=== PATIENT | female | born 1990 ===

== ENCOUNTER 2017-11-15 18:09 | Emergency (ER) | payer OTHER ==
--- NOTE | 2017-11-15 19:20 | ED PDOC ---
HPI: Head Injury Time Seen by Provider: 11/15/17 18:09 Chief Complaint (Nursing): Trauma Chief Complaint (Provider): Trauma History Per: Patient History/Exam Limitations: no limitations Onset/Duration Of Symptoms: Mins (prior to arrival) Additional Complaint(s): 27 year old female who presents to the emergency department with a complaint of right-sided head and shoulder injury exasperated with movement after she was struck by a falling ladder upon opening a door prior to arrival. Denied any loss of consciousness, headache, dizziness, nausea, vomiting, numbness or weakness. PMD: none provided Past Medical History Reviewed: Historical Data, Nursing Documentation, Vital Signs - Medical History PMH: No Chronic Diseases - Surgical History Surgical History: No Surg Hx - Family History Family History: States: Unknown Family Hx - Social History Current smoker - smoking cessation education provided: No Alcohol: None Drugs: Denies - Home Medications Home Medications: Ambulatory Orders Medication Instructions Recorded Ibuprofen [Motrin Tab] 1 tab PO Q6 PRN #20 tab 11/15/17 - Allergies Allergies/Adverse Reactions: Allergies Allergy/AdvReac Type Severity Reaction Status Date / Time No Known Allergies Allergy Verified 11/15/17 18:19 Review of Systems ROS Statement: Except As Marked, All Systems Reviewed And Found Negative Gastrointestinal: Negative for: Nausea, Vomiting Musculoskeletal: Positive for: Shoulder Pain (right-sided) Neurological: Positive for: Other (right-sided head injury). Negative for: Weakness, Numbness, Headache (or LOC), Dizziness Physical Exam - Reviewed Nursing Documentation Reviewed: Yes Vital Signs Reviewed: Yes - Physical Exam Appears: Positive for: Non-toxic, No Acute Distress Head Exam: Positive for: NORMOCEPHALIC. Negative for: NORMAL INSPECTION Extremity: Positive for: Normal ROM, Tenderness (posterior right shoulder/right trapezius tender to palpation). Negative for: Deformity Neurologic/Psych: Positive for: Alert (x3), buzzle buffer II-XII (intact), Oriented, Other (small abrasion to right parietal scalp without tenderness or deformity). Negative for: Motor/Sensory Deficits - Other Rad right shoulder xray X-Ray: Viewed By Me Medical Decision Making Medical Decision Making: Initial Impression: Head injury; right shoulder contusion Initial Plan: * Urine * Flexeril 10mg PO * Tylenol 650mg PO * Xray shoulder (right) * CT head EXAM: CT Head Without Intravenous Contrast CLINICAL HISTORY: 27 years old, female; Injury or trauma; Injury Large ladder fell against right side of her head; Work related; Initial encounter; Blunt trauma (contusions or hematomas); Consciousness not specified; Additional info: [employer] dinjury TECHNIQUE: Axial computed tomography images of the head/brain without intravenous contrast. All CT scans at this facility use one or more dose reduction techniques, viz.: automated exposure control; ma/kV adjustment per patient size (including targeted exams where dose is matched to indication; i.e. head); or iterative reconstruction technique. Coronal and sagittal reformatted images were created and reviewed. COMPARISON: No relevant prior studies available. FINDINGS: Brain: No intracranial hemorrhage. No mass. No edema. Ventricles: No hydrocephalus. Bones/joints: No acute fracture. Soft tissues: Unremarkable. Sinuses: No acute sinusitis. Mastoid air cells: No mastoid effusion. Orbits: Unremarkable as visualized. IMPRESSION: 1. No intracranial hemorrhage. Patient educated on findings, discharged with rx Ibupofen. Advised follow up PMD 2-3 days. RICE Return precautions given Scribe Attestation: Documented by Manuela Goins, acting as a scribe for Adriana Allen PA-C. Provider Scribe Attestation: All medical record entries made by the Scribe were at my direction and personally dictated by me. I have reviewed the chart and agree that the record accurately reflects my personal performance of the history, physical exam, medical decision making, and the department course for this patient. I have also personally directed, reviewed, and agree with the discharge instructions and disposition. Disposition - Clinical Impression Clinical Impression: Head injury, Muscle strain of right shoulder region - Patient ED Disposition Is Patient to be Admitted: No Counseled Patient/Family Regarding: Studies Performed, Diagnosis, Need For Followup, Rx Given - Disposition Referrals: FAMILY PROVIDER,NO [Primary Care Provider] - Disposition: Routine/Home Disposition Time: 22:23 Condition: IMPROVED Prescriptions: Ibuprofen [Motrin Tab] 1 tab PO Q6 PRN #20 tab PRN Reason: Pain, Moderate (4-7) Instructions: Head Injury (ED), Muscle Strain (ED) Forms: [facility] [facility] (Khmer), [facility] ED School/Work Excuse
[2017-11-15 20:51] VITALS: RESP 17
--- NOTE | 2017-11-15 21:54 | CT ---
EXAM: CT Head Without Intravenous Contrast CLINICAL HISTORY: 27 years old, female; Injury or trauma; Injury Large ladder fell against right side of her head; Work related; Initial encounter; Blunt trauma (contusions or hematomas); Consciousness not specified; Additional info: [employer] din[employer] TECHNIQUE: Axial computed tomography images of the head/brain without intravenous contrast. All CT scans at this facility use one or more dose reduction techniques, viz.: automated exposure control; ma/kV adjustment per patient size (including targeted exams where dose is matched to indication; i.e. head); or iterative reconstruction technique. Coronal and sagittal reformatted images were created and reviewed. COMPARISON: No relevant prior studies available. FINDINGS: Brain: No intracranial hemorrhage. No mass. No edema. Ventricles: No hydrocephalus. Bones/joints: No acute fracture. Soft tissues: Unremarkable. Sinuses: No acute sinusitis. Mastoid air cells: No mastoid effusion. Orbits: Unremarkable as visualized. IMPRESSION: 1. No intracranial hemorrhage.
[2017-11-15 22:39] VITALS: BP 113/74; PULSE 76; TEMP 98.2; O2SAT 100
--- NOTE | 2017-11-16 10:28 | RAD ---
PROCEDURE: Radiographs of the Right Shoulder HISTORY: pain COMPARISON: No prior. FINDINGS: BONES: No acute fracture. Sclerotic density within the humeral head. JOINTS: Unremarkable. SOFT TISSUES: Normal. OTHER FINDINGS: None. IMPRESSION: No demonstrated fracture or dislocation. Nonspecific sclerotic density within the humeral head may represent an enostosis.
== END 2017-11-15 22:34 | disposition home or self-care (01) ==
LOC: SUPCPDRO 18:09 → H.ER 18:09
DX: S09.90XA Unspecified injury of head, initial encounter (principal); S40.011A Contusion of right shoulder, initial encounter; S46.911A Strain of unspecified muscle, fascia and tendon at shoulder and upper arm level, right arm, initial encounter; W22.8XXA Striking against or struck by other objects, initial encounter; Y92.89 Other specified places as the place of occurrence of the external cause

== ENCOUNTER 2017-11-17 09:21 | Emergency (ER) | payer OTHER ==
[2017-11-17 09:50] VITALS: BP 118/68; PULSE 66; RESP 14; TEMP 98.7; O2SAT 99
[2017-11-17 09:51] VITALS: BMI 24.3
--- NOTE | 2017-11-17 11:27 | ED PDOC ---
HPI: General Adult Time Seen by Provider: 11/17/17 10:20 Chief Complaint (Nursing): Eye Problem History Per: Patient History/Exam Limitations: no limitations Onset/Duration Of Symptoms: Days (3), Waxing/Waning Have you had recent travel within the past 21 days to any of the following countries: [place], [place], [place] or [place]?: No Current Symptoms Are (Timing): Still Present Severity: Mild Pain Scale Rating Of: 0 Recently: Seen In ED Additional History Per: Patient Additional Complaint(s): Patient reports blurry vision and dizziness for 2 days. Patient had head injury 3 days ago. She was seen in this ED and had negative CT head. Denies any headaches. No syncope. No weakness or numbness. Wears contacts. Past Medical History Reviewed: Historical Data, Nursing Documentation, Vital Signs Vital Signs: Last Vital Signs Temp 98.7 F 11/17/17 09:49 Pulse 66 11/17/17 09:49 Resp 14 11/17/17 09:49 BP 118/68 11/17/17 09:49 Pulse Ox 99 11/17/17 09:49 - Medical History PMH: No Chronic Diseases - Surgical History Surgical History: No Surg Hx - Family History Family History: States: Unknown Family Hx - Home Medications Home Medications: Ambulatory Orders Medication Instructions Recorded Ibuprofen [Motrin Tab] 1 tab PO Q6 PRN #20 tab 11/15/17 - Allergies Allergies/Adverse Reactions: Allergies Allergy/AdvReac Type Severity Reaction Status Date / Time No Known Allergies Allergy Verified 11/15/17 18:19 Review of Systems ROS Statement: Except As Marked, All Systems Reviewed And Found Negative Physical Exam - Reviewed Nursing Documentation Reviewed: Yes Vital Signs Reviewed: Yes - Physical Exam Appears: Positive for: Well, Non-toxic, No Acute Distress Head Exam: Positive for: ATRAUMATIC, NORMAL INSPECTION Skin: Positive for: Warm, Dry Eye Exam: Positive for: EOMI, PERRL. Negative for: Nystagmus Neck: Positive for: Painless ROM, Supple Cardiovascular/Chest: Positive for: Regular Rate, Rhythm. Negative for: Tachycardia Respiratory: Positive for: Normal Breath Sounds. Negative for: Wheezing Gastrointestinal/Abdominal: Positive for: Soft. Negative for: Tenderness Extremity: Positive for: Normal ROM Neurologic/Psych: Positive for: Alert, professor of pathology II-XII (intact), Oriented, Gait. Negative for: Motor/Sensory Deficits - ECG O2 Sat by Pulse Oximetry: 99 Medical Decision Making Medical Decision Making: Impression Concussion CT head reviewed. Patient to follow up with neurologist. Disposition - Clinical Impression Clinical Impression: Head injury, Concussion - Patient ED Disposition Is Patient to be Admitted: No Doctor Will See Patient In The: Office Counseled Patient/Family Regarding: Studies Performed, Diagnosis, Need For Followup - Disposition Referrals: Josr Brandt MD [Staff Provider] - Disposition: Routine/Home Disposition Time: 11:27 Condition: GOOD Additional Instructions: Take motrin for headaches. Drink plenty of fluids. Follow up with neurologist in 2-3 days. You will be called in 2-3 days. Instructions: Concussion (ED) Forms: [facility] [facility] (Armenian)
== END 2017-11-17 11:39 | disposition home or self-care (01) ==
LOC: H.ER 09:21
DX: F07.81 Postconcussional syndrome (principal)